=== PATIENT | male | born 1960 | race Caucasian/White ===

== ENCOUNTER 2018-11-11 12:18 | Emergency (ER) | payer MEDICAID ==
[~2018-11-11] VITALS: Ht 180.3 cm; Wt 74.2 kg
[2018-11-11] MEDS ORDERED: HYDROcodone/acetaminophen 10/325mg tab PO ONE (12:50)
[2018-11-11] MEDS ORDERED: TETanus/Pertussis (Acell)/Diphther VAC/PF (Tdap-Adult) 0.5ml syringe IM ONE (12:50)
--- NOTE | 2018-11-11 12:54 | NUR ---
DR JEROME SEEN PATIENT AND ZAINA CALLED OFF @ [phone]
[2018-11-11] MEDS ORDERED: ondansetron/PF 4mg/2ml inj IV ONE (14:05)
[2018-11-11] MEDS ORDERED: MIDAZolam 5mg/ml 2ml vial IV ONE (14:05)
[2018-11-11] MEDS ORDERED: morphine 4 MG/ML inj SYRINge IV ONE (14:05)
[2018-11-11] MEDS ORDERED: normal saline 1000ML IV soln IVB ONE (14:05)
[2018-11-11] MEDS ORDERED: BUPIVAcaine/PF 2.5 mg/ml (0.25%) 30ml vial IJ ONE (14:25)
[2018-11-11] MEDS ORDERED: BUPIVAcaine/PF 2.5mg/ml (0.25%) 10ml vial IJ ONE (14:35)
[2018-11-11] MEDS ORDERED: HYDR-4383 PO (14:49)
[2018-11-11 15:09] VITALS: BP 143/90
== END 2018-11-11 15:43 | disposition home or self-care (01) ==
LOC: ER 12:19
DX: S52.612A Displaced fracture of left ulna styloid process, initial encounter for closed fracture (principal); S52.502A Unspecified fracture of the lower end of left radius, initial encounter for closed fracture; S62.112A Displaced fracture of triquetrum [cuneiform] bone, left wrist, initial encounter for closed fracture; W11.XXXA Fall on and from ladder, initial encounter; Y93.89 Activity, other specified; Y92.89 Other specified places as the place of occurrence of the external cause; Y99.8 Other external cause status
CPT/HCPCS: 25605; 73110; 90471; 90715; 96374; 96375; 99284; J2250; J2270; J2405; J7030; J3490

== ENCOUNTER 2018-11-21 08:47 | Outpatient (CLI) | payer MEDICAID ==
[2018-11-21 08:47] VITALS: BP 164/108
[~2018-11-21 08:47] MED LIST: HYDR-4383 PO
== END 2018-11-21 09:32 | disposition home or self-care (01) ==
LOC: ORTHO 08:47
PROVIDERS: ATTEND Nurse Practitioner Family
DX: S52.592A Other fractures of lower end of left radius, initial encounter for closed fracture (principal); S52.612A Displaced fracture of left ulna styloid process, initial encounter for closed fracture; S62.112A Displaced fracture of triquetrum [cuneiform] bone, left wrist, initial encounter for closed fracture; W11.XXXA Fall on and from ladder, initial encounter; Y93.89 Activity, other specified; Y92.89 Other specified places as the place of occurrence of the external cause; Y99.8 Other external cause status
CPT/HCPCS: 73110; 99213

== ENCOUNTER 2018-12-04 10:34 | Outpatient (CLI) | payer MEDICAID ==
[2018-12-04 10:39] VITALS: BP 170/108
[2018-12-04 10:40] VITALS: BP 155/108
== END 2018-12-04 11:15 | disposition home or self-care (01) ==
LOC: ORTHO 10:34
PROVIDERS: ATTEND Nurse Practitioner Family
DX: S52.592D Other fractures of lower end of left radius, subsequent encounter for closed fracture with routine healing (principal); S52.612G Displaced fracture of left ulna styloid process, subsequent encounter for closed fracture with delayed healing; S62.112D Displaced fracture of triquetrum [cuneiform] bone, left wrist, subsequent encounter for fracture with routine healing; W11.XXXD Fall on and from ladder, subsequent encounter
CPT/HCPCS: 73110; 99213; A4590

== ENCOUNTER 2019-01-24 15:07 | Outpatient (CLI) | payer MEDICAID | END 2019-01-24 15:15 | disposition home or self-care (01) | LOC: ORTHO 15:07 | PROVIDERS: ATTEND Orthopaedic Surgery | DX: S52.612D Displaced fracture of left ulna styloid process, subsequent encounter for closed fracture with routine healing (principal); S52.592D Other fractures of lower end of left radius, subsequent encounter for closed fracture with routine healing; X58.XXXD Exposure to other specified factors, subsequent encounter | CPT/HCPCS: 73110; 99213 ==

== ENCOUNTER 2019-02-21 15:05 | Outpatient (CLI) | payer MEDICAID ==
[2019-02-21 15:16] VITALS: BP 153/101
== END 2019-02-21 16:09 | disposition home or self-care (01) ==
LOC: ORTHO 15:05
PROVIDERS: ATTEND Orthopaedic Surgery
DX: S52.592D Other fractures of lower end of left radius, subsequent encounter for closed fracture with routine healing (principal); X58.XXXD Exposure to other specified factors, subsequent encounter
CPT/HCPCS: 73110

== ENCOUNTER 2021-06-10 20:23 | Emergency (ER) | payer MEDICAID ==
[~2021-06-10] VITALS: Ht 180.3 cm; Wt 79.5 kg
[2021-06-10 20:55] VITALS: BP 163/108
[2021-06-10] MEDS ORDERED: acetaminophen 325mg tablet PO ONE (21:20)
[2021-06-10] MEDS ORDERED: AMOX-422 PO (22:00)
== END 2021-06-10 22:13 | disposition home or self-care (01) ==
LOC: ER 20:23
DX: U07.1 COVID-19 (principal); R05 Cough; K08.89 Other specified disorders of teeth and supporting structures; R50.9 Fever, unspecified; Z79.2 Long term (current) use of antibiotics; Z79.899 Other long term (current) drug therapy
CPT/HCPCS: 36415; 99283; U0003; U0005

== ENCOUNTER 2021-06-23 10:26 | Emergency (ER) | payer MEDICAID ==
[~2021-06-23] VITALS: Ht 182.9 cm; Wt 77.3 kg
[2021-06-23 10:36] VITALS: BP 147/94
[2021-06-23 11:25] LABS: BASOPHILS # (AUTO) 0.1 X10'3 (0-0.2); BASOPHILS % (AUTO) 1.3 % (0-1); EOSINOPHILS # (AUTO) 0.1 X10'3 (0-0.9); EOSINOPHILS % (AUTO) 0.7 % (0-6); HEMATOCRIT 40.4 % (42.0-52.0); HEMOGLOBIN 13.4 g/dl (14.0-17.9); LYMPHOCYTES # (AUTO) 1.2 X10'3 (1.1-4.8); MEAN CORPUSCULAR HEMOGLOBIN 29.9 PG (27.0-31.0); MEAN CORPUSCULAR HGB CONC 33.3 g/dL (33.0-36.5); MEAN CORPUSCULAR VOLUME 89.9 FL (78-98); MEAN PLATELET VOLUME 7.6 FL (7.4-10.4); MONOCYTES # (AUTO) 0.9 X10'3 (0-0.9); MONOCYTES % (AUTO) 8.5 % (2-12); NEUTROPHILS # (AUTO) 8.3 X10'3 (1.8-7.7); NEUTROPHILS % (AUTO) 78.5 % (42-75); PLATELET COUNT 367 X10'3 (140-440); RED BLOOD COUNT 4.49 X10'6 (4.70-6.10); RED CELL DISTRIBUTION WIDTH 13.7 % (11.5-14.5); WHITE BLOOD COUNT 10.6 X10'3 (4.5-11.0)
[2021-06-23 11:40] LABS: ALANINE AMINOTRANSFERASE 61 U/L (12-78); ALBUMIN 2.6 G/DL (3.4-5.0); ALBUMIN/GLOBULIN RATIO 0.6 (1.1-1.5); ALKALINE PHOSPHATASE 84 IU/L (46-116); ANION GAP 7 (8-16); ASPARTATE AMINO TRANSFERASE 23 U/L (10-37); BILIRUBIN,TOTAL 0.5 MG/DL (0.1-1.0); BLOOD UREA NITROGEN 13 MG/DL (7-18); BUN/CREATININE RATIO 15.7 (5.4-32.0); CALCIUM 8.3 MG/DL (8.5-10.1); CHLORIDE 104 MMOL/L (99-107); CREATININE 0.83 MG/DL (0.60-1.10); GLUCOSE 112 MG/DL (70-104); LIPASE 194 U/L (73-393); POTASSIUM 3.9 MMOL/L (3.5-5.1); SODIUM 141 MMOL/L (135-145); TOTAL CARBON DIOXIDE 29.8 MMOL/L (24-32); TOTAL PROTEIN 7.1 G/DL (6.4-8.2); eGFR > 90 ML/MIN
[2021-06-23] MEDS ORDERED: acetaminophen 325mg tablet PO ONE (12:45)
[2021-06-23] MEDS ORDERED: ketorolac tromethamine 15mg/ml inj. IM ONE (12:45)
[2021-06-23] MEDS ORDERED: ketorolac trometh. 30mg/ml inj. IM ONE (12:50)
== END 2021-06-23 13:25 | disposition home or self-care (01) ==
LOC: ER 10:26
DX: U07.1 COVID-19 (principal); R10.84 Generalized abdominal pain; I10 Essential (primary) hypertension; Z79.2 Long term (current) use of antibiotics; Z79.899 Other long term (current) drug therapy
CPT/HCPCS: 36415; 71045; 80053; 83690; 85025; 96372; 99284; J1885

== ENCOUNTER 2024-10-08 16:00 | Inpatient (IN) | payer MEDICAID ==
[~2024-10-08] VITALS: Ht 180.3 cm; Wt 79.0 kg
[2024-10-08 16:53] LABS: BASOPHILS # (AUTO) 0.1 X10'3 (0-0.2); BASOPHILS % (AUTO) 0.9 % (0-1); EOSINOPHILS # (AUTO) 0.1 X10'3 (0-0.9); EOSINOPHILS % (AUTO) 1.1 % (0-6); HEMATOCRIT 41.8 % (42.0-52.0); HEMOGLOBIN 14.1 g/dl (14.0-17.9); LYMPHOCYTES # (AUTO) 1.6 X10'3 (1.1-4.8); LYMPHOCYTES % (AUTO) 20.8 % (21-51); MEAN CORPUSCULAR HEMOGLOBIN 30.1 PG (27.0-31.0); MEAN CORPUSCULAR HGB CONC 33.7 g/dL (33.0-36.5); MEAN CORPUSCULAR VOLUME 89.3 FL (78-98); MEAN PLATELET VOLUME 7.8 FL (7.4-10.4); MONOCYTES # (AUTO) 0.5 X10'3 (0-0.9); MONOCYTES % (AUTO) 6.8 % (2-12); NEUTROPHILS # (AUTO) 5.3 X10'3 (1.8-7.7); NEUTROPHILS % (AUTO) 70.4 % (42-75); PLATELET COUNT 277 X10'3 (140-440); RED BLOOD COUNT 4.68 X10'6 (4.70-6.10); RED CELL DISTRIBUTION WIDTH 13.5 % (11.5-14.5); WHITE BLOOD COUNT 7.5 X10'3 (4.5-11.0)
[2024-10-08 17:08] LABS: ALBUMIN 3.7 G/DL (3.4-5.0); ANION GAP 8 (8-16); BLOOD UREA NITROGEN 22 MG/DL (7-18); BUN/CREATININE RATIO 25.3 (10.0-20.0); CALCIUM 8.6 MG/DL (8.5-10.1); CHLORIDE 105 MMOL/L (99-107); CREATININE 0.87 MG/DL (0.60-1.10); GLUCOSE 122 MG/DL (70-104); POTASSIUM 3.5 MMOL/L (3.5-5.1); SODIUM 139 MMOL/L (135-145); TOTAL CARBON DIOXIDE 25.7 MMOL/L (24-32); eCRCL 94 ML/MIN; eGFR 89 ML/MIN
[2024-10-08] MEDS ORDERED: iohexol 350MG/ML 100ml bottle IV ONE (17:11)
[2024-10-08 17:12] LABS: APTT 26 SECONDS (22-32); INR 1.1 INR; PROTHROMBIN TIME 11.1 SECONDS (9.0-12.0)
[2024-10-08] MEDS ORDERED: LISI20TA28 (18:54)
[2024-10-08] MEDS: aspirin 325mg tablet PO ONE (18:59)
[2024-10-08] MEDS: clopidogrel 75mg tablet PO ONE (18:59)
[2024-10-08] MEDS ORDERED: magnesium Cl slow-release 64mg tablet PO PRN (20:35)
[2024-10-08] MEDS ORDERED: magnesium hydroxide 30ml (MOM) UD suspension PO PRN (20:35)
[2024-10-08] MEDS ORDERED: magnesium sulf-water 4G/100mL 100 ML IV PRN (20:35)
[2024-10-08] MEDS ORDERED: potassium Cl 40MEQ/1/2NS 520ml 520 ML IV PRN (20:35)
[2024-10-08] MEDS ORDERED: PERFLUTREN PROTEIN-A MICROSPHR (Optison) 0.22 MG/ML 3ML VIAL IV ONE (20:35)
[2024-10-08] MEDS ORDERED: HYDROcodone/acetaminophen 5mg/325mg tablet PO PRN (20:35)
[2024-10-08] MEDS ORDERED: magnesium sulf-water 2g/50mL 50 ML IV PRN (20:35)
[2024-10-08] MEDS ORDERED: ondansetron/PF 4mg/2ml inj IV PRN (20:35)
[2024-10-08] MEDS ORDERED: potassium Cl 20 mEq SR tablet PO PRN ×2 (20:35)
[2024-10-08] MEDS ORDERED: morphine 2 MG/ML inj. syringe IV PRN (20:35)
[2024-10-08] MEDS ORDERED: acetaminophen 325mg tablet PO PRN (20:35)
[2024-10-08] MEDS ORDERED: mag hydrox/Alum hydrox/simeth 30ml oral suspension PO PRN (20:35)
[2024-10-08 20:59] LABS: HEMOGLOBIN A1C 5.8 % (4.5-6.2)
[2024-10-08 21:40] VITALS: BP 140/89; PULSE 62; RESP 16; TEMP 97.3; O2SAT 98
[2024-10-09 02:00] VITALS: BP 126/66; PULSE 70; TEMP 98.2; O2SAT 97
[2024-10-09 06:00] VITALS: BP 140/83; PULSE 52; RESP 18; TEMP 97.5; O2SAT 98
[2024-10-09 06:13] LABS: BASOPHILS # (AUTO) 0.1 X10'3 (0-0.2); EOSINOPHILS # (AUTO) 0.2 X10'3 (0-0.9); EOSINOPHILS % (AUTO) 4.4 % (0-6); HEMATOCRIT 40.6 % (42.0-52.0); HEMOGLOBIN 13.5 g/dl (14.0-17.9); LYMPHOCYTES # (AUTO) 1.6 X10'3 (1.1-4.8); LYMPHOCYTES % (AUTO) 29.4 % (21-51); MEAN CORPUSCULAR HEMOGLOBIN 29.9 PG (27.0-31.0); MEAN CORPUSCULAR HGB CONC 33.3 g/dL (33.0-36.5); MEAN CORPUSCULAR VOLUME 89.8 FL (78-98); MEAN PLATELET VOLUME 8.3 FL (7.4-10.4); MONOCYTES # (AUTO) 0.5 X10'3 (0-0.9); MONOCYTES % (AUTO) 9.8 % (2-12); NEUTROPHILS % (AUTO) 55.4 % (42-75); PLATELET COUNT 277 X10'3 (140-440); RED BLOOD COUNT 4.52 X10'6 (4.70-6.10); RED CELL DISTRIBUTION WIDTH 13.6 % (11.5-14.5); WHITE BLOOD COUNT 5.5 X10'3 (4.5-11.0)
[2024-10-09 06:58] LABS: ANION GAP 10 (8-16); BLOOD UREA NITROGEN 20 MG/DL (7-18); BUN/CREATININE RATIO 23.3 (10.0-20.0); CALCIUM 8.3 MG/DL (8.5-10.1); CHLORIDE 107 MMOL/L (99-107); CHOL/HDL RATIO 3.4 (0.00-4.99); CHOLESTEROL 152 MG/DL (0-200); CREATININE 0.86 MG/DL (0.60-1.10); GLUCOSE 130 MG/DL (70-104); HDL CHOLESTEROL 45 MG/DL (35-60); LDL CHOLESTEROL 95 MG/DL (50-100); MAGNESIUM 2.4 MG/DL (1.5-2.4); POTASSIUM 3.6 MMOL/L (3.5-5.1); SODIUM 142 MMOL/L (135-145); TOTAL CARBON DIOXIDE 25.3 MMOL/L (24-32); TRIGLYCERIDES 113 MG/DL (20-135); eCRCL 95 ML/MIN; eGFR 90 ML/MIN
[2024-10-09] MEDS: K and/or MAG REPLACEMENT MC SCH (10:31)
[2024-10-09] MEDS: docusate sod 100mg capsule PO SCH (10:31)
[2024-10-09 11:00] VITALS: BP 171/94; PULSE 63; RESP 14; TEMP 97.7; O2SAT 99
[2024-10-09 18:00] VITALS: BP 150/94; PULSE 64; RESP 12; TEMP 97.6; O2SAT 98
[2024-10-09] MEDS: atorvastatin 20mg tablet PO SCH (18:35)
[2024-10-09] MEDS: clopidogrel 75mg tablet PO SCH (19:59)
[2024-10-09] MEDS: aspirin 81mg, enteric-coated 1 TAB TABLET.DR PO SCH (19:59)
[2024-10-09 20:00] VITALS: RESP 16; O2SAT 98
[2024-10-09] MEDS: heparin, porcine 5000 units/ml vial SQ SCH (20:01)
[2024-10-09 22:00] VITALS: BP 171/109; PULSE 71; RESP 16; TEMP 98.2; O2SAT 98
[2024-10-10 06:00] VITALS: BP 157/86; PULSE 54; RESP 16; TEMP 97; O2SAT 97
[2024-10-10 06:05] LABS: BASOPHILS % (AUTO) 0.7 % (0-1); EOSINOPHILS # (AUTO) 0.3 X10'3 (0-0.9); EOSINOPHILS % (AUTO) 4.8 % (0-6); HEMATOCRIT 40.2 % (42.0-52.0); HEMOGLOBIN 13.4 g/dl (14.0-17.9); LYMPHOCYTES # (AUTO) 1.9 X10'3 (1.1-4.8); LYMPHOCYTES % (AUTO) 29.1 % (21-51); MEAN CORPUSCULAR HEMOGLOBIN 30.1 PG (27.0-31.0); MEAN CORPUSCULAR HGB CONC 33.4 g/dL (33.0-36.5); MEAN PLATELET VOLUME 8.2 FL (7.4-10.4); MONOCYTES # (AUTO) 0.7 X10'3 (0-0.9); MONOCYTES % (AUTO) 10.4 % (2-12); NEUTROPHILS # (AUTO) 3.6 X10'3 (1.8-7.7); PLATELET COUNT 264 X10'3 (140-440); RED BLOOD COUNT 4.47 X10'6 (4.70-6.10); RED CELL DISTRIBUTION WIDTH 13.6 % (11.5-14.5); WHITE BLOOD COUNT 6.6 X10'3 (4.5-11.0)
[2024-10-10 06:32] LABS: ANION GAP 9 (8-16); BLOOD UREA NITROGEN 19 MG/DL (7-18); BUN/CREATININE RATIO 21.8 (10.0-20.0); CHLORIDE 105 MMOL/L (99-107); CREATININE 0.87 MG/DL (0.60-1.10); GLUCOSE 105 MG/DL (70-104); POTASSIUM 3.5 MMOL/L (3.5-5.1); SODIUM 141 MMOL/L (135-145); TOTAL CARBON DIOXIDE 26.8 MMOL/L (24-32); eCRCL 94 ML/MIN; eGFR 89 ML/MIN
[2024-10-10 07:34] LABS: MAGNESIUM 1.8 MG/DL (1.5-2.4)
[2024-10-10 08:00] VITALS: RESP 16; O2SAT 97
[2024-10-10] MEDS ORDERED: ATOR20TA66 PO (09:58)
[2024-10-10] MEDS ORDERED: ASPI-1071 PO (09:58)
[2024-10-10] MEDS ORDERED: CLOP75TA34 PO (09:58)
[2024-10-10 10:48] VITALS: BP_SYST 157; PULSE 54
[2024-10-10] MEDS: lisinopril 10 MG tablet PO SCH (10:48)
== END 2024-10-10 12:15 | disposition home or self-care (01) | DRG 45 ==
LOC: ER 16:01 → ED HOLD 19:31 → ORTHO 4S 21:15
PROVIDERS: ADMIT Surgery Surgical Critical Care; ATTEND Internal Medicine
PROC: B3251ZZ Computerized Tomography (CT Scan) of Bilateral Common Carotid Arteries using Low Osmolar Contrast (ICD-10-PCS; principal; 2024-10-08)
PROC: B32G1ZZ Computerized Tomography (CT Scan) of Bilateral Vertebral Arteries using Low Osmolar Contrast (ICD-10-PCS; 2024-10-08)
PROC: B32R1ZZ Computerized Tomography (CT Scan) of Intracranial Arteries using Low Osmolar Contrast (ICD-10-PCS; 2024-10-08)
PROC: B3281ZZ Computerized Tomography (CT Scan) of Bilateral Internal Carotid Arteries using Low Osmolar Contrast (ICD-10-PCS; 2024-10-08)
DX: I63.9 Cerebral infarction, unspecified (principal); I08.1 Rheumatic disorders of both mitral and tricuspid valves; I10 Essential (primary) hypertension; Z87.891 Personal history of nicotine dependence
CPT/HCPCS: 36415; 70450; 70460; 70496; 70498; 70551; 71045; 80048; 80061; 82948; 83036; 83735; 85025; 85610; 85730; 87081; 92508; 92616; 93005; 93306; 97110; 97162; 99291; G0378; J1644; Q9967